=== PATIENT | male | born 1950 | race Caucasian/White ===

== ENCOUNTER 2017-01-16 18:44 | Emergency (ER) | payer MEDICARE ==
[~2017-01-16] VITALS: Ht 170.2 cm; Wt 81.8 kg
[2017-01-16 18:50] VITALS: BP 131/76; PULSE 90; RESP 17; O2SAT 97
[2017-01-16 20:39] LABS: BASOPHILS % (AUTO) 0.1 % (0-3); EOSINOPHILS % (AUTO) 1.4 % (0-5); MONOCYTES % (AUTO) 11.7 % (4-12); Mean Corpuscular Hemoglobin 29.7 pg (27.0-35.0); Mean Corpuscular Volume 87.4 fL (81-100); NEUTROPHILS % (AUTO) 76.1 % (40-74); Platelet Count 227 bil/L (150-400)
[2017-01-16 20:52] LABS: Magnesium 1.7 mg/dL (1.6-2.6)
--- NOTE | 2017-01-16 21:01 | ED.REPORT ---
HPI-Abd Pain M 40 and Over Date of Service Jan 16, 2017 ED Provider: Joni Torres MD A 66 year old male with a history of left total hip replacement on 01/13/2017 presents to the ED complaining of LLQ abdominal pain that began at 15:30 yesterday. The pain felt like constipation, but the pt has had five bowel movements since without pain relief. These bowel movement were normal, but were less than he expected. The pt admits to low grade fever and headache, but denies nausea, vomiting, diarrhea, or dysuria. Nursing Notes Stated Complaint: LEFT LOWER ABDOMINAL PAIN Chief Complaint: Male Abdominal Pain Nursing Notes Reviewed: Yes Allergies: Coded Allergies: No Known Allergies (Unverified , 01/16/17) Scheduled Levofloxacin (Levaquin) 750 Mg Tablet 750 MG PO DAILY Metronidazole (Flagyl) 500 Mg Tablet 500 MG PO Q8H Scheduled PRN Docusate Sodium (Colace) 100 Mg Capsule 100 MG PO BID PRN PRN For Constipation Ibuprofen (Ibuprofen) 600 Mg Tablet 600 MG PO QID PRN PRN For Pain Ondansetron ODT (Ondansetron ODT) 8 Mg Tab.rapdis 8 MG PO QID PRN PRN For Nausea General Time Seen by MD: 21:00 Chief Complaint Abdominal pain Hx Obtained From: Patient Arrived By: Walk-in Sudden in Onset?: No Onset Occurred: 1 day ago Symptom Duration: Since onset Recent Healthcare: Recent doctor visit, Recent hospitalization Similar Sx Previous: Yes Past Medical History Past Medical History none reported Past Surgical History left total hip replacement Smoking History Unknown if Ever Smoker Social History Other Social History: Good social support, Ambulatory Status Independent Review of Systems Constitutional: Reports: Fever Respiratory: Denies: Non-productive cough Cardiovascular: Denies: Chest pain GI: Reports: Abdominal pain, Denies: Constipation, Diarrhea, Nausea, Vomiting Male: Denies Dysuria Musculoskeletal: Denies: Back pain, Neck pain Complete sys rev & neg: except as marked. Physical Exam Initial Vital Signs Vital Signs (First) Date Time Temp Pulse Resp B/P Pulse Ox O2 Delivery O2 Flow Rate FiO2 01/16/17 18:50 37.0 90 17 131/76 97 Room Air Initial VS: Reviewed General/Constitutional: Awake, Alert Respiratory / Chest: Atraumatic, Breath sounds NL, Breath sounds = bilat, No respiratory distress Cardiovascular: Heart rate NL, Regular rhythm, Heart sounds NL Abdomen: Atraumatic, Soft significant focal tenderness of LLQ Back: Atraumatic, Full range of motion Head / Eyes: Atraumatic, Normocephalic, PERRL, EOMI ENT: Atraumatic, Airway patent, Mucous membranes moist Skin: Atraumatic, Color NL, No rash, Warm, Dry Neurologic: Oriented X3, Speech NL, No motor deficits, No sensory deficits Neck: Atraumatic, Supple, Full range of motion Upper Extremity / MS: Atraumatic, Full range of motion Lower Extremity / Pelvis / MS: Atraumatic, Full range of motion Psychiatric: Affect NL, Mood NL Interpretation & Diagnostics Lab Results Interpretation Result Diagram: 01/16/17 2016 01/16/17 2016 Test 01/16/17 19:55 01/16/17 20:16 Hold Urine Received (Received) White Blood Count 14.9th/mm3 (3.8-10.1) Red Blood Count 4.68mil/mm3 (4.40-5.80) Hemoglobin 13.9g/dL (13.8-17.2) Hematocrit 40.9% (41.0-50.0) Mean Corpuscular Volume 87.4fL (81-100) Mean Corpuscular Hemoglobin 29.7pg (27.0-35.0) Mean Corpuscular Hemoglobin Concent 34.0% (32.0-37.0) Red Cell Distribution Width 12.8% (12.3-15.4) Platelet Count 227bil/L (150-400) Neutrophils (%) (Auto) 76.1% (40-74) Lymphocytes (%) (Auto) 10.4% (14-46) Monocytes (%) (Auto) 11.7% (4-12) Eosinophils (%) (Auto) 1.4% (0-5) Basophils (%) (Auto) 0.1% (0-3) Sodium Level 136mEq/L (134-144) Potassium Level 4.2mEq/L (3.5-5.2) Chloride Level 99mEq/L (97-108) Carbon Dioxide Level 23mmol/L (18-29) Blood Urea Nitrogen 13mg/dL (8-27) Creatinine 0.75mg/dL (0.76-1.27) Estimat Glomerular Filtration Rate 110mL/min (>59) Glucose Level 109mg/dL (60-99) Calcium Level 9.0mg/dL (8.5-10.1) Magnesium Level 1.7mg/dL (1.6-2.6) Total Bilirubin 0.8mg/dL (0.0-1.2) Aspartate Amino Transf (AST/SGOT) 28U/L (0-50) Alanine Aminotransferase (ALT/SGPT) 31U/L (0-44) Alkaline Phosphatase 66U/L (25-160) Total Protein 7.0g/dL (6.4-8.4) Albumin 4.1g/dL (3.4-5.0) Lipase 23U/L (13-60) Hold [place] Top Tube Received (Received) CT Abd / Pelvis Interpretation CONCLUSION: Diverticulitis of the distal left colon without evidence of obstruction, abscess or free air/fluid. Cholelithiasis without CT evidence of cholecystitis. Interpretation / Wet Read by: Interpret - Radiologist Re-Eval/Medical Decision Med Decision/Clinical Course 66-year-old just postop from a hip replacement presents with left lower quadrant abdominal pain. He has diverticulitis on CT with moderate elevation of his white count and no other findings of immediate concern. He is taking by mouth, having minimal pain, and is discharged now in stable condition on Levaquin and Flagyl, with instructions to return if worsening despite treatment. Follow up PCP. Diverticulosis diet given. Source of Hx: Old records Time of Eval: 23:08 Patient Status: Condition improved Re-Evaluation/Progress Note: Pt rechecked, who is resting comfortably. The plan for discharge is discussed. The pt understands and agrees with the plan. All questions are addressed at this time. Counseled Regarding: Diagnosis, Lab results, Need for follow-up, When/why to return to ED Discharge & Departure Primary Impression: Diverticulitis Disposition: Home Vital Signs - All Vital Signs Date Time Temp Pulse Resp B/P Pulse Ox O2 Delivery O2 Flow Rate FiO2 01/16/17 23:27 37.0 70 18 153/75 95 Room Air 01/16/17 22:52 70 18 153/75 95 Room Air 01/16/17 18:50 37.0 90 17 131/76 97 Room Air )( All Prior VS Reviewed: Yes Condition: Stable Patient Instructions: Diverticulitis (ED), Diverticulitis Diet (ED) Additional Instructions: Begin Levaquin daily for five days. Begin Flagyl three times daily for ten days. Begin Colace twice daily for the foreseeable future. Ibuprofen four times daily for pain. Ondansetron Up to four times daily if needed for nausea. You may use your pain medicines sparingly if you need additionally. Begin with a light liquid diet and advance as tolerated. Return if you are having uncontrolled pain, or vomiting, or developing fever despite treatment. Call your doctor Thursday for follow-up visit Thursday or Thursday Referrals: Edinson Blackwell MD (PCP) Scribe Attestation Portions of this note were transcribed by Alfredito Barakat. I, Dr. Torres personally performed the history, physical exam and medical decision-making; I reviewed and confirmed the accuracy of the information in the transcribed note. Signed by: Anahi Cortes, 01/16/2017 and 2327. copies to: Edinson Blackwell MD, Christopher W MD Jan 16, 2017 21:01 ALFREDITO BARAKAT Jan 16, 2017 21:08
[2017-01-16] MEDS ORDERED: Iohexol 300 mg/mL 30 mL Inj PO ONE (21:10)
[2017-01-16] MEDS ORDERED: 0.9% Sodium Chloride 1,000 ML IV ONE (21:10)
[2017-01-16 22:52] VITALS: BP 153/75; PULSE 70; RESP 18; O2SAT 95
[2017-01-16] MEDS ORDERED: levoFLOXacin 750 mg Tablet PO ONE (23:00)
[2017-01-16] MEDS ORDERED: LEVO750T9 PO (23:04)
[2017-01-16] MEDS ORDERED: DOCU-41 PO (23:04)
[2017-01-16] MEDS ORDERED: IBUP-1827 PO (23:04)
[2017-01-16] MEDS ORDERED: ONDA8TAB10 PO (23:04)
[2017-01-16] MEDS ORDERED: METR500T PO (23:04)
[2017-01-16] MEDS ORDERED: Ketorolac 15 mg/mL Inj IVPUSH ONE (23:05)
[2017-01-16 23:27] VITALS: BP 153/75; PULSE 70; RESP 18; O2SAT 95
--- NOTE | 2017-01-17 07:47 | DRSVH ---
PROCEDURE: CT ABDOMEN AND PELVIS WITH CONTRAST ([id number]) INDICATIONS: llq abdo pain TECHNIQUE: After the administration of oral and intravenous contrast, 5 mm thick sections acquired from the diap hragms to the symphysis. 5 mm thick coronal and sagittal reformats were performed. For radiation do se reduction, the following was used: automated exposure control, adjustment of mA and/or kV accordi ng to patient size. COMPARISON: None. FINDINGS: Image quality: Excellent. ABDOMEN: Lung bases: Lung bases are clear. Heart size is normal. Solid organs: Liver and spleen are normal in size and enhancement. Gallbladder contains gallstones. Biliary system is non-dilated. Pancreas enhances normally. No adrenal nodules. Kidneys are maxine l in size and enhancement, without hydronephrosis. Bilateral renal cysts are noted. Peritoneum and bowel: Stomach, small bowel, and colon loops are normal in caliber. Scattered diverti culi noted in the colon. Inflammatory changes noted in the distal left colon region diverticuli most compatible with diverticulitis. No free fluid or air. The appendix is normal. Nodes and vessels: No retroperitoneal or mesenteric adenopathy. Aorta and inferior vena cava are no rmal in caliber. Miscellaneous: No ventral hernias. PELVIS: Genitourinary: Bladder wall thickness is normal. Miscellaneous: No inguinal hernias or adenopathy. Inflammation and small fluid collections noted in the anterior margin of the proximal left thigh the level of the left hip may represent postsurgical c hange related to arthroplasty; please correlate with surgical history. Bones: No suspicious bony lesions. No vertebral body compression fractures. Status post left hip ar throplasty. IMPRESSION: 1. Distal left colon diverticulitis. No peridiverticular abscess or free air identified. 2. Cholelithiasis. Dictated by: Kaia Charles MD, PhD on 01/17/2017 at 7:42 Approved by: Kaia Charles MD, PhD on 01/17/2017 at 7:46
== END 2017-01-16 23:28 | disposition home or self-care (01) ==
LOC: SED 18:44
DX: K57.32 Diverticulitis of large intestine without perforation or abscess without bleeding (principal); R50.9 Fever, unspecified; R51 Headache
CPT/HCPCS: 36415; 74177; 80053; 83690; 83735; 85025; 96361; 96374; 96376; 99285; J1885; J7030; Q9967